=== PATIENT | male | born 2005 | race African-American/Black ===

== ENCOUNTER 2024-11-16 02:34 | Emergency (ER) | payer OTHER ==
[2024-11-16] MEDS ORDERED: IBUPROFEN 400 MG TAB ONE (03:04)
[2024-11-16] MEDS ORDERED: IBUPROFEN 200 MG TAB PO ONE (03:04)
[2024-11-16 03:30] LABS: Influenza A Ag Negative; Influenza B Ag Negative
[2024-11-16 03:31] LABS: SARS-CoV-2 Antigen Rapid Res Positive (Negative)
--- NOTE | 2024-11-16 03:38 | ER ---
Nurse's Notes [facility] Name: Galen Avalos Jr Age: 19 yrs Sex: Male : 2005 Arrival Date: 11/16/2024 Time: 02:34 Bed 14 Private MD: Diagnosis: SARS-associated coronavirus as the cause of diseases classified elsewhere;Myalgia;Headache Presentation: 11/16 02:51 Chief complaint: Patient states: SORE THROAT, HEADACHE, CHILLS...DENIES N/V/D SYMPTOMS br2 BEGAN MONDAY. Coronavirus screen: Client denies travel out of the [place] in the last 14 days. Ebola Screen: Patient denies exposure to infectious person. Initial Sepsis Screen: Does the patient meet any 2 criteria? HR > 90 bpm. Does the patient have a suspected source of infection? No. Patient's initial sepsis screen is negative. Risk Assessment: Do you want to hurt yourself or someone else? Patient reports no desire to harm self or others. Onset of symptoms was November 14, 2024. 02:51 Method Of Arrival: Ambulatory br2 02:51 Acuity: CECILIA 3 br2 Triage Assessment: 02:52 Headache History: Denies prior headaches. General: Appears uncomfortable, Behavior is br2 calm, cooperative. Pain: Complains of pain in top of head and forehead Pain currently is 8 out of 10 on a pain scale. Pain began 2-3 days ago. Also complains of. Historical: - Allergies: 02:52 No Known Allergies; br2 - Home Meds: 02:52 None [Active]; br2 - PMHx: 02:52 None; br2 - Immunization history:: Adult Immunizations up to date. - Infectious Disease History:: Denies. - Social history:: Smoking status: Reported history of juuling and/or vaping. Patient/guardian denies using alcohol, street drugs. Screenin:12 [facility] ED Fall Risk Assessment (Adult) History of falling in the last 3 months, ss12 including since admission No falls in past 3 months (0 pts) Confusion or Disorientation No (0 pts) Intoxicated or Sedated No (0 pts) Impaired Gait No (0 pts) Mobility Assist Device Used No (0 pt) Altered Elimination No (0 pt) Score/Fall Risk Level 0 - 2 = Low Risk Oriented to surroundings, Maintained a safe environment, Educated pt \T\ family on fall prevention, incl call for assistance when getting out of bed, Assessed \T\ reinforced patient's understanding of fall precautions. Abuse screen: Denies threats or abuse. Denies injuries from another. Nutritional screening: No deficits noted. Tuberculosis screening: No symptoms or risk factors identified. Assessment: 02:55 General: Appears comfortable, Behavior is calm, cooperative, quiet. Pain: Complains of ss12 pain in headache Pain does not radiate. Pain currently is 8 out of 10 on a pain scale. Neuro: No deficits noted. Level of Consciousness is awake, alert, obeys commands, Oriented to person, place, time, situation. Cardiovascular: No deficits noted. Denies nausea, vomiting. Respiratory: No deficits noted. Airway is patent Respiratory effort is even, unlabored, Respiratory pattern is regular, symmetrical. GI: No deficits noted. No signs and/or symptoms were reported involving the gastrointestinal system. : No deficits noted. No signs and/or symptoms were reported regarding the genitourinary system. EENT: No deficits noted. No signs and/or symptoms were reported regarding the EENT system. Derm: Skin is intact, Skin is dry, Skin is normal. Musculoskeletal: No deficits noted. No signs and/or symptoms reported regarding the musculoskeletal system. 03:44 Reassessment: Patient appears in no apparent distress at this time. Patient and/or bm8 family updated on plan of care and expected duration. Pain level reassessed. Patient is alert, oriented x 3, equal unlabored respirations, skin warm/dry/pink. Patient denies pain at this time. Patient states feeling better. Patient states symptoms have improved. Vital Signs: 02:51 BP 128 / 76; Pulse 108; Resp 18; Temp 97.8; Pulse Ox 100% on R/A; Weight 74.39 kg; br2 Height 6 ft. 4 in. ; Pain 8/10; 03:44 BP 125 / 74; Pulse 99; Resp 17; Temp 97.8; Pulse Ox 100% ; Pain 0/10; bm8 02:51 Body Mass Index 19.96 (74.39 kg, 193.04 cm) br2 02:51 Pain Scale: Adult br2 03:44 Pain Scale: Adult bm8 Sury Coma Score: 03:44 Eye Response: spontaneous(4). Motor Response: obeys commands(6). Verbal Response: bm8 oriented(5). Total: 15. ED Course: 02:37 Patient arrived in ED. jj6 02:42 Tru Roblero DO is Attending Physician. ms3 02:52 Triage completed. br2 02:57 Dmitry Andres, RN is Primary Nurse. ss12 03:09 COVID-19 Ag + Flu A+B Ag Sent. ss12 03:12 Arm band placed on right wrist. ss12 03:12 Patient has correct armband on for positive identification. ss12 03:13 No provider procedures requiring assistance completed. ss12 03:13 Provided Education on: plan of care. ss12 03:37 Dom Monroe DO is Referral Physician. ms3 03:44 Patient did not have IV access during this emergency room visit. bm8 Administered Medications: 03:00 Drug: Ibuprofen PO 600 mg PO once Route: PO; ss12 03:45 Follow up: Response: No adverse reaction bm8 Medication: 03:12 VIS not applicable for this client. ss12 Outcome: 03:37 Discharge ordered by MD. ms3 03:44 Discharged to home ambulatory, bm8 03:44 Condition: stable 03:44 Discharge instructions given to patient, family, Instructed on discharge instructions, follow up and referral plans. no drinking with medication, no driving heavy equipment, medication usage, safety practices, Demonstrated understanding of instructions, follow-up care, medications, Prescriptions given X 03:46 Patient left the ED. bm8 Signatures: Tru Roblero DO DO ms3 Lubna Welch jj6 Vamshi Tovar, RN RN bm8 Bre Jerez, SABA WALTER br2 Dmitry Andres RN RN ss12
--- NOTE | 2024-11-16 03:38 | EDPHYS ---
Physician Documentation [facility] Name: Galen Avalos Jr Age: 19 yrs Sex: Male : 2005 Arrival Date: 11/16/2024 Time: 02:34 Bed 14 Private MD: ED Physician Tru Roblero HPI: 11/16 03:38 This 19 yrs old Male presents to ER via Ambulatory with complaints of Headache, Fever. ms3 03:38 19-year-old male with no past medical history presents to the emergency department for ms3 frontal headache, chills, sore throat that began on night and became worse after work yesterday. Patient states discomfort is an 8/10 described as aching, headache, fatigue. Patient endorses cough. Patient denies nausea or vomiting.. Historical: - Allergies: 02:52 No Known Allergies; br2 - Home Meds: 02:52 None [Active]; br2 - PMHx: 02:52 None; br2 - Immunization history:: Adult Immunizations up to date. - Infectious Disease History:: Denies. - Social history:: Smoking status: Reported history of juuling and/or vaping. Patient/guardian denies using alcohol, street drugs. ROS: 03:38 Respiratory: Negative for shortness of breath, cough, wheezing, and pleuritic chest ms3 pain, Abdomen/GI: Negative for abdominal pain, nausea, vomiting, diarrhea, and constipation, MS/Extremity: Negative for injury and deformity, Skin: Negative for injury, rash, and discoloration, 03:38 Constitutional: Positive for body aches, chills, fatigue, fever, Exam: 03:38 Constitutional: This is a well developed, well nourished patient who is awake, alert, ms3 and in no acute distress. Cardiovascular: Regular rate and rhythm with a normal S1 and S2. No gallops, murmurs, or rubs. Normal PMI, no JVD. No pulse deficits. Respiratory: Lungs have equal breath sounds bilaterally, clear to auscultation and percussion. No rales, rhonchi or wheezes noted. No increased work of breathing, no retractions or nasal flaring. Abdomen/GI: Soft, non-tender, with normal bowel sounds. No distension or tympany. No guarding or rebound. No evidence of tenderness throughout. Skin: Warm, dry with normal turgor. Normal color with no rashes, no lesions, and no evidence of cellulitis. Vital Signs: 02:51 BP 128 / 76; Pulse 108; Resp 18; Temp 97.8; Pulse Ox 100% on R/A; Weight 74.39 kg; br2 Height 6 ft. 4 in. ; Pain 8/10; 03:44 BP 125 / 74; Pulse 99; Resp 17; Temp 97.8; Pulse Ox 100% ; Pain 0/10; bm8 02:51 Body Mass Index 19.96 (74.39 kg, 193.04 cm) br2 02:51 Pain Scale: Adult br2 03:44 Pain Scale: Adult bm8 Sury Coma Score: 03:44 Eye Response: spontaneous(4). Motor Response: obeys commands(6). Verbal Response: bm8 oriented(5). Total: 15. MDM: 02:42 Medical Screening Exam initiated ms3 03:38 Differential diagnosis: sinusitis, Flu versus COVID versus viral illness. Data ms3 reviewed: vital signs, nurses notes, lab test result(s), and as a result, I will discharge patient. I considered the following discharge prescriptions or medication management in the emergency department Medications were administered in the Emergency Department. See MAR. Counseling: I had a detailed discussion with the patient and/or guardian regarding the historical points, exam findings, and any diagnostic results supporting the discharge/admit diagnosis, the need for outpatient follow up, to return to the emergency department if symptoms worsen or persist or if there are any questions or concerns that arise at home. ED course: Discussed positive COVID results with patient. Patient to follow-up with primary care physician 2 to 3 days. All questions were answered. Discussed symptomatic care with patient. Return precautions discussed include shortness of breath, worsening condition, or any other concerns.. 11/16 02:48 Order name: COVID-19 Ag + Flu A+B Ag; Complete Time: 03:34 ms3 Administered Medications: 03:00 Drug: Ibuprofen PO 600 mg PO once Route: PO; ss12 03:45 Follow up: Response: No adverse reaction bm8 Disposition Summary: 11/16/24 03:37 Discharge Ordered Notes: Location: Home ms3 Condition: Stable ms3 Diagnosis - SARS-associated coronavirus as the cause of diseases classified elsewhere ms3 - Myalgia ms3 - Headache ms3 Followup: ms3 - With: Dom Monroe DO - When: 2 - 3 days - Reason: Recheck today's complaints Discharge Instructions: - Discharge Summary Sheet ms3 - General Headache Without Cause ms3 - COVID-19 ms3 - Viral Illness, Adult ms3 Forms: - Medication Reconciliation Form ms3 - Antibiotic Education ms3 - Prescription Opioid Use ms3 - Patient Portal Instructions ms3 - Leadership Thank You Letter ms3 - Work release form bm8 Signatures: Dispatcher [employer] EDTru Ahumada DO DO ms3 Bre Jerez RN RN br2 Dmitry Andres RN RN ss12 Vamshi Tovar RN bm8
[2024-11-16 09:13] VITALS: TEMP 97.8; O2SAT 100
[2024-11-16 09:15] VITALS: BP 125/74
== END 2024-11-16 03:46 | disposition home or self-care (01) ==
LOC: ER 02:34
DX: U07.1 COVID-19 (principal); M79.10 Myalgia, unspecified site
CPT/HCPCS: 36415; 87428; 99284